=== PATIENT | female | born 1950 | race Caucasian/White ===

== ENCOUNTER 2016-09-06 19:06 | Emergency (ER) | payer OTHER, MEDICARE ==
[~2016-09-06] VITALS: Ht 172.7 cm; Wt 65.0 kg
[~2016-09-06 19:06] MED LIST: CALC600T10 PO; DICL100T PO; EFFE150C PO; MULTTAB67 PO; RISP0.5T2 PO; SIMV40TA PO
[2016-09-06 19:09] VITALS: BP 131/83; PULSE 97; RESP 15; TEMP 97.9; O2SAT 98
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
[2016-09-06] MEDS ORDERED: TETANUS/DIPHTHERIA TOXOID ADULT 0.5 ML VIAL IM ONE (19:45)
[2016-09-06] MEDS ORDERED: ONDANSETRON HCL 4 MG/2 ML VIAL IVP ONE (19:45)
[2016-09-06] MEDS ORDERED: MORPHINE SULFATE 4 MG/ML INJ IV ONE (19:45)
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
[2016-09-06 20:31] LABS: AUTOMATED NEUTROPHIL # 9.9 TH/MM3 (1.8-7.7); BASOPHIL % 0.4 % (0.0-2.0); EOSINOPHIL # 0.1 TH/MM3 (0-0.4); EOSINOPHIL % 0.5 % (0.0-4.0); HEMATOCRIT 39.8 % (35.0-46.0); HEMO FLAGS DIFF FINAL; LYMPH % 9.8 % (9.0-44.0); LYMPHOCYTE # 1.2 TH/MM3 (1.0-4.8); MEAN CELL VOLUME 93.5 FL (80.0-100.0); MEAN CORPUSCULAR HEMOGLOBIN 32.4 PG (27.0-34.0); MEAN CORPUSCULAR HGB CONC 34.7 % (32.0-36.0); MONO % 6.1 % (0.0-8.0); NEUT % 83.2 % (16.0-70.0); PLATELET COUNT 234 TH/MM3 (150-450); RED BLOOD COUNT 4.26 MIL/MM3 (4.00-5.30); RED CELL DISTRIBUTION WIDTH 13.5 % (11.6-17.2); WHITE BLOOD COUNT 11.9 TH/MM3 (4.0-11.0)
[2016-09-06 20:40] LABS: APTT (PATIENT) 25.9 SEC (24.3-30.1); PROTHROMBIN TIME - PATIENT 10.5 SEC (9.8-11.6)
[2016-09-06 20:52] LABS: ANION GAP 11 MEQ/L (5-15); AST (GOT) 21 U/L (15-37); BICARBONATE 26.4 MEQ/L (21.0-32.0); BLOOD UREA NITROGEN 22 MG/DL (7-18); CHLORIDE 100 MEQ/L (98-107); GLOMERULAR FILTRATION RATE 45 ML/MIN (>89); POTASSIUM 4.2 MEQ/L (3.5-5.1); SODIUM (NA) 137 MEQ/L (136-145)
[2016-09-06 20:55] LABS: ALKALINE PHOSPHATASE 117 U/L (45-117); ALT (GPT) 18 U/L (10-53); TOTAL BILIRUBIN ADULT 0.6 MG/DL (0.2-1.0)
[2016-09-06] MEDS ORDERED: IOHEXOL 350 MG/ML 10 ML VIAL (for RAD DIAG) IV ONE (21:21)
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
[2016-09-06] MEDS ORDERED: HYDR-3533 PO (21:40)
[2016-09-06] MEDS ORDERED: LIDO5DIS35 TOPICAL (21:40)
[2016-09-06] MEDS ORDERED: IBUP800T23 PO (21:40)
[2016-09-06] MEDS ORDERED: ONDANSETRON ODT 4 MG TAB PO ONE (21:45)
[2016-09-06] MEDS ORDERED: ACETAMINOPHEN/HYDROcodone 325 MG/5 MG TAB PO ONE (21:45)
== END 2016-09-06 22:20 | disposition home or self-care (01) ==
LOC: NEPD 19:06
DX: S22.41XA Multiple fractures of ribs, right side, initial encounter for closed fracture (principal); S50.312A Abrasion of left elbow, initial encounter; S16.1XXA Strain of muscle, fascia and tendon at neck level, initial encounter; V49.40XA Driver injured in collision with unspecified motor vehicles in traffic accident, initial encounter; Z23 Encounter for immunization
CPT/HCPCS: 71101; 72125; 74177; 80053; 85025; 85610; 85730; 90471; 90714; 99284; Q9967